=== PATIENT | male | born 1980 | race Hispanic/Latino ===

== ENCOUNTER 2017-04-06 14:40 | Emergency (ER) | payer SELFPAY ==
[~2017-04-06] VITALS: Ht 177.8 cm; Wt 72.2 kg
[2017-04-06 14:51] VITALS: BP 132/74
== END 2017-04-06 16:47 | disposition left against medical advice (07) ==
LOC: EME 14:40
DX: M12.812 Other specific arthropathies, not elsewhere classified, left shoulder (principal); Z76.5 Malingerer [conscious simulation]; Z53.20 Procedure and treatment not carried out because of patient's decision for unspecified reasons; F17.200 Nicotine dependence, unspecified, uncomplicated
CPT/HCPCS: 73030; 99281; 99283; J3010